=== PATIENT | male | born 1985 | race Caucasian/White ===

== ENCOUNTER 2017-06-09 12:11 | Emergency (ER) | payer OTHER, SELFPAY ==
[2017-06-09] MEDS ORDERED: Adacel (T-DAP) 0.5 ML VIAL ONE (12:59)
[2017-06-09] MEDS ORDERED: Cephalexin 500 MG CAP ONE (13:36)
== END 2017-06-09 13:42 | disposition home or self-care (01) ==
LOC: SCSER 12:11
DX: S66.324A Laceration of extensor muscle, fascia and tendon of right ring finger at wrist and hand level, initial encounter (principal); F17.210 Nicotine dependence, cigarettes, uncomplicated; W45.8XXA Other foreign body or object entering through skin, initial encounter
CPT/HCPCS: 12002; 90471; 90715

== ENCOUNTER 2017-10-31 11:07 | Emergency (ER) | payer SELFPAY ==
[2017-10-31 11:53] LABS: Hemoglobin 15.8 g/dL (14.0-18.0); Mean Corpuscular HGB CONC 34.7 g/dL (32.0-36.0); Mean Corpuscular Volume 92.2 fl (80.0-94.0); Mean Platelet Volume 10.1 fL (7.4-10.4); Platelet Count 165 thou/uL (130-400); RBC Distribution Width 12.1 % (11.5-14.5); Red Blood Cell (RBC) Count 4.96 mill/uL (4.70-6.10); White Blood Cell (WBC) Count 10.4 thou/uL (4.8-10.8)
[2017-10-31 11:54] LABS: Anion Gap 16 mmol/L (10-20); BUN (Urea Nitrogen) 8 mg/dL (8.9-20.6); Calc. Creatinine Clearance 0 mL/min (70-130); Calcium 9.2 mg/dL (7.8-10.44); Carbon Dioxide 21 mmol/L (22-29); Chloride 105 mmol/L (98-107); Estimated GFR-MDRD Greater than 90; Glucose 105 mg/dL (70-105); Potassium 4.1 mmol/L (3.5-5.1); Sodium 138 mmol/L (136-145)
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
[2017-10-31 12:02] LABS: Band 1 % (5-11); Eosinophils 2 % (0-10); Lymphocytes 32 % (21-51); MDiff Complete? YES; Monocytes 5 % (0-10); Neutrophil 60 % (42-75); PLT Morphology Comment Appears Adequate; RBC Morphology Normal
[2017-10-31] MEDS ORDERED: Morphine 10 MG/ML VIAL ONE (12:06)
== END 2017-10-31 12:30 | disposition short-term general hospital (02) ==
LOC: SCSER 11:07
DX: T20.06XA Burn of unspecified degree of forehead and cheek, initial encounter (principal); F17.210 Nicotine dependence, cigarettes, uncomplicated; X01.0XXA Exposure to flames in uncontrolled fire, not in building or structure, initial encounter
CPT/HCPCS: 71045; 80048; 85025; 96361; 96374; J2270

== ENCOUNTER 2019-01-06 14:20 | Emergency (ER) | payer SELFPAY ==
[2019-01-06] MEDS ORDERED: Proparacaine 0.5% Opth 15 ML BOT ONE (14:49)
[2019-01-06] MEDS ORDERED: Fluorescein Opthalmic Strip ONE (14:49)
== END 2019-01-06 17:26 | disposition home or self-care (01) ==
LOC: ERS 14:20
DX: T15.01XA Foreign body in cornea, right eye, initial encounter (principal); F17.210 Nicotine dependence, cigarettes, uncomplicated; W22.8XXA Striking against or struck by other objects, initial encounter
CPT/HCPCS: 65222

== ENCOUNTER 2019-02-15 11:34 | Emergency (ER) | payer SELFPAY ==
[2019-02-15] MEDS ORDERED: diphenhydrAMINE 25 MG CAP ONE (11:39)
[2019-02-15] MEDS ORDERED: Famotidine 20 MG TAB ONE (11:39)
[2019-02-15] MEDS ORDERED: methylPREDNISolone Sod Succ/PF 125 MG/2 ML VIAL ONE (12:01)
[2019-02-15] MEDS ORDERED: Water For Inject, Bacteriostat 30 ML ONE (12:02)
== END 2019-02-15 12:47 | disposition home or self-care (01) ==
LOC: SCSER 11:34
DX: T63.441A Toxic effect of venom of bees, accidental (unintentional), initial encounter (principal); F17.210 Nicotine dependence, cigarettes, uncomplicated
CPT/HCPCS: 96374; J2930; Q0163